=== PATIENT | male | born 1950 | race Caucasian/White ===

== ENCOUNTER 2020-10-12 15:26 | Emergency (ER) | payer OTHER ==
[~2020-10-12] VITALS: Ht 165.1 cm; Wt 68.0 kg
[2020-10-12] MEDS ORDERED: FLUTICASONE PRO30 G1 TOP (17:42)
[2020-10-12] MEDS ORDERED: ULTRAM 50MG TAB50 MG PO (17:42)
[2020-10-12 18:03] VITALS: BP 143/86
== END 2020-10-12 18:04 | disposition home or self-care (01) ==
LOC: ER 15:26
DX: I73.89 Other specified peripheral vascular diseases (principal); I87.2 Venous insufficiency (chronic) (peripheral); Z88.0 Allergy status to penicillin